=== PATIENT | female | born 1935 | race Caucasian/White ===

== ENCOUNTER 2017-05-22 09:00 | Inpatient (IN) | payer OTHER, MEDICARE ==
[~2017-05-22] VITALS: Ht 160 cm; Wt 110.0 kg
[2017-05-23] MEDS ORDERED: WARF-18 PO (11:55)
[2017-05-23] MEDS ORDERED: FURO40TA PO (11:55)
[2017-05-23] MEDS ORDERED: POTA-163 PO (11:55)
[2017-05-23] MEDS ORDERED: PRAV40TA PO (11:55)
[2017-05-23] MEDS ORDERED: ATEN25TA PO (11:55)
[2017-05-23] MEDS ORDERED: LEVO88TA2 PO (11:55)
[2017-05-23] MEDS ORDERED: SACC1CAP3 PO (12:33)
[2017-05-23] MEDS ORDERED: FISH1200 (12:33)
[2017-05-23] MEDS ORDERED: ONETAB22 PO (12:33)
[2017-05-24] VITALS (11 sets, daily range): BP systolic 105–136; BP diastolic 52–75; PULSE 61–84; RESP 16–18; TEMP 98–98.5; O2SAT 98–100
[2017-05-24] MEDS ORDERED: PROTAMINE SULFATE 50 MG/5 ML VIAL ONE ×2 (07:29→10:18)
[2017-05-24] MEDS ORDERED: HEPARIN SODIUM - IV 10,000 UNITS/10 ML VIAL ONE (07:29)
[2017-05-24] MEDS ORDERED: ceFAZolin 2 GM PREMIX 50 ML ONE (07:29)
[2017-05-24] MEDS ORDERED: HEPARIN-NS/PF INJ 500 ML ONE (07:29)
[2017-05-24] MEDS ORDERED: LACTATED RINGER'S 1000 ML IV PRN (07:30)
[2017-05-24] MEDS ORDERED: SODIUM CHLORID 0.9% 500 ML IV PRN (07:30)
[2017-05-24] MEDS ORDERED: CHLORHEXIDINE GLUCONATE 2 % 1 PACK (2 CLOTHS) TOPICAL PRN (07:30)
[2017-05-24] MEDS ORDERED: BUPIVACAINE HCL PF 0.5% 30 ML VIAL ONE (07:30)
[2017-05-24] MEDS ORDERED: POVIDONE IODINE 5% (ANTISEPSIS KIT) 4 APPLICATIONS EACH NARE PRN (07:30)
[2017-05-24] MEDS ORDERED: METOPROLOL TARTRATE 25 MG TAB PO PRN (07:30)
[2017-05-24 08:03] LABS: INTERNATIONAL NORMALIZED RATIO 1.7 RATIO; PROTHROMBIN TIME - PATIENT 18.7 SEC (9.8-11.6)
--- NOTE | 2017-05-24 08:06 | RADRPT ---
EXAM DATE/TIME: 05/24/2017 07:32 [place] COMPARISON: CHEST SINGLE AP, April 17, 2012, 18:54. INDICATIONS : Evaluate for pneumonia, pneumothorax, or communicable disease. Pre-op stent abdominal. MEDICAL HISTORY : Hypertension. Heart disease. SURGICAL HISTORY : Colon resection due to ruptured colon. Right renal stent. ENCOUNTER: Initial ACUITY: 1 day PAIN SCORE: 0/10 LOCATION: Bilateral chest FINDINGS: A single view of the chest demonstrates the lungs to be symmetrically aerated without evidence of mas s, infiltrate or effusion. Unchanged mild cardiomegaly. No pulmonary vascular engorgement. Osseous s tructures are intact. CONCLUSION: Cardiomegaly without pulmonary vascular engorgement. Clear lungs. Mustapha Vargas Jr., MD on May 24, 2017 at 7:52 Board Certified Radiologist. This report was verified electronically.
--- NOTE | 2017-05-24 08:44 | HHI.HP ---
History of Present Illness Chief Complaint: type III endoleak History of Present Illness 82 yo female with h/o fenestrated EVAR in 2015 at [facility]. 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 Presents for repair. No abdominal pain or chest pain. Past/Family/Social History Past Medical History HTN AAA A fib hypothyroid Past Surgical History 4 vessel fenestrated EVAR Social History nonsmoker Family History [place] Home Medications Reported Medications [place]-3 Fatty Acids (Fish Oil 1200 mg) 360 Mg-1,200 Mg Cap, 1 CAP BID 05/23/17 Saccharomyces Boulardii (Probiotic) 250 Mg Cap, 250 MG PO DAILY for Nutritional Supplement, CAP 0 Refills 05/23/17 Multiple Vitamins W/ Minerals (One Daily-Minerals) 1 Tab, 1 TAB PO DAILY for Nutritional Supplement, #100 TAB 0 Refills 05/23/17 Warfarin (Warfarin) 2.5 Mg Tab, 2.5 MG PO DAILY for Blood Clot Prevention, #30 TAB 0 Refills 05/23/17 Pravastatin (Pravachol) 40 Mg Tab, 40 MG PO DAILY for Cholesterol Management, # 30 TAB 0 Refills 05/23/17 Potassium Chloride ER (Potassium Chloride ER) 20 Meq Tab, 20 MEQ PO DAILY for Electrolyte Replacement, #30 TAB 0 Refills 05/23/17 Levothyroxine (Levothyroxine) 88 Mcg Tab, 88 MCG PO DAILY for Thyroid, #30 TAB 0 Refills 05/23/17 Furosemide (Furosemide) 40 Mg Tab, 40 MG PO DAILY, #30 TAB 0 Refills 05/23/17 Atenolol (Atenolol) 25 Mg Tab, 25 MG PO BID for Blood Pressure Management, #30 TAB 05/23/17 Discontinued Reported Medications Hydrocodone-Acetaminophen (Hydrocodone-Acetaminophen) 5-325 mg Tab, 1 TAB PO Q4H Y for PAIN, TAB 0 Refills 05/23/17 Coded Allergies: No Known Allergies (Unverified Allergy, Unknown, 05/24/17) Review of Systems Respiratory: DENIES: Apneas, Cough, Snoring, Wheezing, Hemoptysis, Sputum production, Shortness of breath Cardiovascular: DENIES: Chest pain, Palpitations, Syncope, Dyspnea on Exertion , PND, Lower Extremity Edema, Orthopnea, Claudication Genitourinary: COMPLAINS OF: Dysuria Physical Exam Vitals/I&O Date Time Temp Pulse Resp B/P (MAP) Pulse Ox O2 Delivery O2 Flow Rate FiO2 05/24/17 07:45 97.8 65 20 151/82 (105) 98 Neuro: alert oriented, no distress HEENT: NC/AT; anicteric sclera Neck: no JVD Heart: no murmurs Lungs: clear B Abdomen: loss of domain, nontender Vascular: groins without erythema Laboratory Tests Test 05/24/17 07:40 Prothrombin Time 18.7 Prothromb Time International Ratio 1.7 Last 48 hours Impressions Chest X-Ray 05/24/17 0713 Signed Impressions: Service Date/Time: , May 24, 2017 07:32 - CONCLUSION: Cardiomegaly without pulmonary vascular engorgement. Clear lungs. MD Tamar Holt Jr. VTE Risk Assessment Tamar VTE Risk Assessment: Mod/High Risk (score >= 2) Caprini Risk Assessment Model Point Value = 1 Point Value = 2 Point Value = 3 Point Value = 5 Age 41-60 Minor surgery BMI > 25 kg/m2 Swollen legs Varicose veins or History of unexplained or recurrent spontaneous Oral contraceptives or hormone replacement Sepsis (< 1 month) Serious lung disease, including pneumonia (< 1 month) Abnormal pulmonary function Acute myocardial infarction Congestive heart failure (< 1 month) History of inflammatory bowel disease Medical patient at bed rest Age 61-74 Arthroscopic surgery Major open surgery (> 45 min) Laparoscopic surgery (> 45 min) Malignancy Confined to bed (> 72 hours) Immobilizing plaster cast Central venous access Age >= 75 History of VTE Family history of VTE Factor V Leiden Prothrombin [id number] Lupus anticoagulant Anticardiolipin antibodies Elevated serum homocysteine Heparin-induced thrombocytopenia Other congenital or acquired thrombophilia Stroke (< 1 month) Elective arthroplasty Hip, pelvis, or leg fracture Acute spinal cord injury (< 1 month) Prophylaxis Regimen Total Risk Factor Score Risk Level Prophylaxis Regimen 0-1 Low Early ambulation 2 Moderate Order ONE of the following: *Sequential Compression Device (SCD) *Heparin 5000 units SQ BID 3-4 Higher Order ONE of the following medications: *Heparin 5000 units SQ TID *Enoxaparin/Lovenox 40 mg SQ daily (WT < 150 kg, CrCl > 30 mL/min) *Enoxaparin/Lovenox 30 mg SQ daily (WT < 150 kg, CrCl > 10-29 mL/min) *Enoxaparin/Lovenox 30 mg SQ BID (WT < 150 kg, CrCl > 30 mL/min) AND/OR *Sequential Compression Device (SCD) 5 or more Highest Order ONE of the following medications: *Heparin 5000 units SQ TID (Preferred with Epidurals) *Enoxaparin/Lovenox 40 mg SQ daily (WT < 150 kg, CrCl > 30 mL/min) *Enoxaparin/Lovenox 30 mg SQ daily (WT < 150 kg, CrCl > 10-29 mL/min) *Enoxaparin/Lovenox 30 mg SQ BID (WT < 150 kg, CrCl > 30 mL/min) AND *Sequential Compression Device (SCD) Assessment and Plan Plan to OR for EVAR revision risks and benefits discussed with patient and daughter Discharge Planning [facility] post-op likely home POD#1 Daughter (Debbie) [phone] Santos Mederos MD May 24, 2017 08:44
[2017-05-24 09:00] LABS: BACTERIA, URINE RARE /hpf; BLOOD, URINE SMALL (NEG); COMMENT (UR) CATH-CULTURE IND; CULTURE IF INDICATED CATH CULTURE IND; GLUCOSE,URINE NEG (NEG); HYALINE CAST, URINE 10 /lpf (RARE); KETONE, URINE NEG (NEG); MUCUS URINE FEW /lpf (OCC); NITRITE,URINE NEG (NEG); PH, URINE 5.5 (5.0-8.5); SQUAMOUS EPITHELIAL CELL URINE 1 /hpf (0-5); URINE COLOR YELLOW (YELLW/STRAW)
[2017-05-24] MEDS ORDERED: MAGNESIUM HYDROXIDE SUSP 30 ML CUP PO PRN (09:00)
[2017-05-24] MEDS ORDERED: BISACODYL 10 MG SUPP RECTAL PRN (09:00)
[2017-05-24] MEDS ORDERED: LACTULOSE SYRUP 20 GM/30 ML CUP PO PRN (09:00)
[2017-05-24] MEDS ORDERED: NON-FORMULARY DRUG (Omega-3 Fatty Acids (Fish Oil 1200 mg) 1 CAP) SCH (09:00)
[2017-05-24] MEDS ORDERED: HYDROmorphone HCL 2 MG TAB PO PRN (09:00)
[2017-05-24] MEDS ORDERED: NON-FORMULARY DRUG (Saccharomyces Boulardii (Probiotic) 250 MG) PO SCH (09:00)
[2017-05-24] MEDS ORDERED: SENNOSIDES 8.6 MG TAB PO PRN (09:00)
[2017-05-24] MEDS ORDERED: LEVOTHYROXINE SODIUM 88 MCG TAB PO SCH (09:30)
[2017-05-24] MEDS ORDERED: MORPHINE SULFATE 2 MG/ML INJ IV PUSH PRN (09:30)
--- NOTE | 2017-05-24 10:46 | HHI.PR ---
Immediate Post Op Note Procedure Date: May 24, 2017 Pre Op Diagnosis: Type III endoleak after fenestrated EVAR Post Op Diagnosis: same Surgeon: Santos Mederos Paralegals(s): none Procedure: 1. EVAR revision (interposition aortic graft) 2. IVUS of aorta 3. U/S guided access 4. L GENERAL HANDLING SUPERVISOR Angioseal 5. R GENERAL HANDLING SUPERVISOR Perclose Findings: resolution of type III endoleak Complications: none; Specimen(s) removed: none Estimated blood loss: 50mL Anesthesia: General Drains: None Fluids: 1300mL IVF Urinary Output (mLs): 60 Patient to: PACU Patient Condition: Good Implant/Devices: SEE IMPLANT LOG (if applicable) Date/Time of Procedure: SEE SURGICAL CARE RECORD Santos Mederos MD May 24, 2017 10:46
[2017-05-24] MEDS ORDERED: DO NOT ADM ANY ANTICOAGULANT DRUGS PRN (10:56)
[2017-05-24] MEDS ORDERED: *morphine SULFATE 8 MG/ML PERIprocedure ONLY ONE (11:05)
[2017-05-24] MEDS: D5-1/2 NS + KCL 20 MEQ INJ 1,000 ML IV SCH (11:15)
[2017-05-24] MEDS ORDERED: LIDOCAINE HCL 1% PF 5 ML SYRINGE OTHER ONE (12:00)
[2017-05-24] MEDS ORDERED: ROCURONIUM INJ 50 MG/5 ML SYRINGE IV PUSH ONE (12:00)
[2017-05-24] MEDS ORDERED: PROPOFOL 200 MG/20 ML AMP IV ONE (12:00)
[2017-05-24] MEDS ORDERED: LABETALOL HCL 100 MG/20 ML VIAL IV ONE (12:00)
[2017-05-24] MEDS ORDERED: ePHEDrine/NS 25 MG/5 ML SYR IV ONE (12:00)
[2017-05-24] MEDS ORDERED: ONDANSETRON HCL 4 MG/2 ML VIAL IV PUSH ONE (12:00)
[2017-05-24] MEDS ORDERED: NEOSTIGMINE 3 MG/3 ML SYR IV ONE (12:00)
[2017-05-24] MEDS ORDERED: GLYCOPYRROLATE 1 MG/5 ML SYRINGE IV PUSH ONE (12:00)
[2017-05-24] MEDS ORDERED: BENZOCAINE 6 MG/MENTHOL 10 MG LOZENGE BUCCAL PRN (20:15)
[2017-05-24] MEDS: DOCUSATE SODIUM 50 MG/SENNA 8.6 MG TAB PO SCH (22:00)
[2017-05-24] MEDS: ATENOLOL 25 MG TAB PO SCH (22:01)
[2017-05-25] VITALS (32 sets, daily range): BP systolic 102–126; BP diastolic 53–60; PULSE 74–94; RESP 16–20; TEMP 98.5–99.3; O2SAT 91–96
[2017-05-25] MEDS: ATENOLOL 25 MG TAB PO SCH ×4 (03:27→20:24)
[2017-05-25 05:09] LABS: MEAN CELL VOLUME 95.4 FL (80.0-100.0); MEAN CORPUSCULAR HEMOGLOBIN 32.4 PG (27.0-34.0); MEAN CORPUSCULAR HGB CONC 33.9 % (32.0-36.0); PLATELET COUNT 125 TH/MM3 (150-450); RED BLOOD COUNT 3.98 MIL/MM3 (4.00-5.30); RED CELL DISTRIBUTION WIDTH 14.9 % (11.6-17.2); REVIEW FLAG FINAL; WHITE BLOOD COUNT 9.9 TH/MM3 (4.0-11.0)
[2017-05-25 05:17] LABS: BICARBONATE 30.3 MEQ/L (21.0-32.0); POTASSIUM 4.6 MEQ/L (3.5-5.1)
--- NOTE | 2017-05-25 05:55 | MP ---
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 PROCEDURE Endovascular aortic exclusion of abdominal aorta using the aorta-aortic endoprosthesis. ATTENDING SURGEON Santos Mederos MD. SPIRAL [employer]ING W[employer]ER None. ANESTHESIA General. INDICATIONS Ms. Castrejon is an 82-year-old lady who had a fenestrated endovascular repair. She has a Type III endoleak and expanding aneurysm is taken to the operating room for endovascular mediation. DESCRIPTION Informed consent was obtained from the patient. She was taken to the operating room and placed supine on the operating room table. An appropriate time-out was taken to ensure the patient's identity, the operative site and planned procedure. The administration of 2 grams of Ancef was initiated prior to the skin incision and will be discontinued after a single preoperative dose. Everyone in the room agreed with the time-out abd we proceeded. She was prepped from her nipples to her knees. Under ultrasonic guidance, a 21-gauge micropuncture needle was used to access the right common femoral artery. This was exchanged using Seldinger technique for a micropuncture sheath through which a 0.05 Storq wire was introduced. The micropuncture sheath was exchanged for a 5-[place] sheath. Two Perclose ProGlide sutures were inserted and tagged. They were not tied down as these will be used later. An 8-Citizen [place], 25 cm was introduced. Micropuncture access was obtained in the left common femoral artery, exchanged using Seldinger technique for a micropuncture sheath through which a 0.05 Storq wire was introduced. The micropuncture sheath was exchanged for a 5-[place]izen [place] sheath. The patient was systemically heparinized and throughout the remainder of the case the ACT was kept greater than 250. The Storq wire was advanced using the aid of Berenstein catheters up to the thoracic aorta and the right hand Storq wire was exchanged for a Lunderquist wire. The intravascular ultrasound catheter was then advanced and the IVUS catheter showed that the wire was indeed through the entire stents and not through the interstices of the stents. The IVUS catheter was removed and a 12-mm balloon was used to inflate in the middle of the aorta and then gently withdrawn caudally to again show that we were indeed in the lumen of the vessels. The balloon was removed. The 8-Citizen [place] sheath was removed. A pigtail catheter was placed up through the left hand side. After the 8-[place]izen [place] sheath was removed from the right side, [place] dilators were used to dilate the skin, subcutaneous tract and arteriotomy and a 32 x 53 cuff was then placed immediately caudal to the right renal artery stent which was the lower stent and it was deployed without difficulty. A second stent was then deployed down to the aortic bifurcation. Both of these were ballooned with a Coda balloon and at the completion angiogram showed excellent without any recoil or extravasation and complete resolution of the endoleak. The wire, catheter and sheath were removed. The Perclose were tied down on the right-hand side, hemostasis achieved in the groin and there was a nice Doppler signal in the foot. The left groin was closed with AngioSeal. There no complications. I was present and scrubbed and performed the entire procedure. MD ELY Cooper/SSB /3:12 PM /5:34 AM
[2017-05-25] MEDS: LEVOTHYROXINE SODIUM 88 MCG TAB PO SCH (06:23)
[2017-05-25] MEDS ORDERED: ONDANSETRON HCL 4 MG/5 ML UDC PO PRN (07:00)
--- NOTE | 2017-05-25 09:23 | PD.VS.PN ---
Subjective POD #: 1 Procedure(s): EVAR revision Subjective/Hospital Course felt great last night but nauseated this morning. Says that happens occasionally with morphine no abdominal tenderness no chest pain no diaphoresis Objective Vitals/I&O Date Time Temp Pulse Resp B/P (MAP) Pulse Ox O2 Delivery O2 Flow Rate FiO2 05/25/17 09:15 98.9 94 18 126/60 (82) 95 05/25/17 06:00 75 05/25/17 05:00 82 05/25/17 04:00 85 05/25/17 03:37 99.3 86 16 117/58 (77) 96 05/25/17 03:00 82 05/25/17 02:00 86 05/25/17 01:00 82 05/25/17 00:00 86 05/24/17 23:24 98.5 76 16 136/63 (87) 98 05/24/17 23:00 84 05/24/17 22:00 74 05/24/17 21:00 74 05/24/17 20:30 98.5 70 16 120/75 (90) 99 05/24/17 20:00 66 05/24/17 19:00 64 05/24/17 18:01 65 05/24/17 17:13 76 05/24/17 16:15 67 05/24/17 15:20 98.0 61 18 105/52 (69) 100 Arterial Line 05/24/17 15:20 68 05/24/17 13:05 97.7 61 17 105/55 (72) 98 Nasal Cannula 2 05/24/17 12:45 60 17 107/57 (74) 97 Nasal Cannula 2 05/24/17 12:15 59 17 104/52 (69) 100 Nasal Cannula 2 05/24/17 12:00 58 17 104/52 (69) 100 Nasal Cannula 2 05/24/17 11:45 63 17 99/54 (69) 100 Nasal Cannula 2 114/58 (76) 05/24/17 11:30 63 15 98/51 (67) 99 Nasal Cannula 3 118/57 (77) 05/24/17 11:15 66 14 93/49 (64) 99 Nasal Cannula 3 110/51 (70) 05/24/17 11:00 70 15 107/51 (69) 98 Nasal Cannula 3 132/61 (84) 05/24/17 10:56 97.6 86 15 112/55 (74) 97 Nasal Cannula 3 120/58 (78) 05/25/17 05/25/17 05/25/17 07:00 15:00 23:00 Intake Total 660 ml Output Total 550 ml Balance 110 ml Exam: groins soft feel warm Laboratory Laboratory Tests Test 05/25/17 04:25 White Blood Count 9.9 Red Blood Count 3.98 Hemoglobin 12.9 Hematocrit 38.0 Mean Corpuscular Volume 95.4 Mean Corpuscular Hemoglobin 32.4 Mean Corpuscular Hemoglobin Concent 33.9 Red Cell Distribution Width 14.9 Platelet Count 125 Mean Platelet Volume 8.5 Blood Urea Nitrogen 20 Creatinine 1.10 Random Glucose 135 Calcium Level 8.0 Sodium Level 139 Potassium Level 4.6 Chloride Level 104 Carbon Dioxide Level 30.3 Anion Gap 5 Estimat Glomerular Filtration Rate 48 Date/Time Source Procedure Growth Status 05/24/17 08:30 Urine Catheterized Urine Urine Culture Pending Received Assessment and Plan Plan POD#1 s/p EVAR revision Can be d/c'ed later today if nausea subsides Discharge Planning later today Daughter (Debbie) [phone] Santos Mederos MD May 25, 2017 09:23
[2017-05-25] MEDS: D5-1/2 NS + KCL 20 MEQ INJ 1,000 ML IV SCH (09:26)
[2017-05-25] MEDS: FUROSEMIDE 40 MG TAB PO SCH ×2 (09:26→09:32)
[2017-05-25] MEDS: PRAVASTATIN SOD 40 MG TAB PO SCH ×2 (09:27→09:32)
[2017-05-25] MEDS: ENOXAPARIN SODIUM 30 MG/0.3 ML SYRINGE SQ SCH (09:27)
[2017-05-25] MEDS: POTASSIUM CHLORIDE 20 MEQ CONTROLLED RELEASE TAB PO SCH ×3 (12:21→12:24)
[2017-05-25] MEDS: MULTIVITAMINS/MINERALS THERAPEUTIC TAB PO SCH ×3 (12:21→12:24)
[2017-05-25] MEDS: DOCUSATE SODIUM 50 MG/SENNA 8.6 MG TAB PO SCH ×3 (12:22→20:24)
[2017-05-25] MEDS: ACETAMINOPHEN 325 MG TAB PO PRN ×2 (16:49→20:26)
[2017-05-26] VITALS (12 sets, daily range): BP systolic 114–120; BP diastolic 54–75; PULSE 73–90; RESP 16–18; TEMP 98.3–98.9; O2SAT 94–95
[2017-05-26] MEDS: ACETAMINOPHEN 325 MG TAB PO PRN ×2 (03:32→08:58)
[2017-05-26] MEDS: LEVOTHYROXINE SODIUM 88 MCG TAB PO SCH (06:00)
[2017-05-26] MEDS: ATENOLOL 25 MG TAB PO SCH (08:55)
[2017-05-26] MEDS: FUROSEMIDE 40 MG TAB PO SCH (08:55)
[2017-05-26] MEDS: PRAVASTATIN SOD 40 MG TAB PO SCH (08:55)
[2017-05-26] MEDS: POTASSIUM CHLORIDE 20 MEQ CONTROLLED RELEASE TAB PO SCH (08:55)
[2017-05-26] MEDS: MULTIVITAMINS/MINERALS THERAPEUTIC TAB PO SCH (08:55)
[2017-05-26] MEDS: DOCUSATE SODIUM 50 MG/SENNA 8.6 MG TAB PO SCH (08:55)
[2017-05-26] MEDS: D5-1/2 NS + KCL 20 MEQ INJ 1,000 ML IV SCH (08:56)
[2017-05-26] MEDS: ENOXAPARIN SODIUM 30 MG/0.3 ML SYRINGE SQ SCH (09:00)
--- NOTE | 2017-05-26 10:25 | PD.VS.PN ---
Subjective POD #: 2 Procedure(s): EVAR revision Subjective/Hospital Course Nausea gone c/o dysuria and UA + no abdominal pain Objective Vitals/I&O Date Time Temp Pulse Resp B/P (MAP) Pulse Ox O2 Delivery O2 Flow Rate FiO2 05/26/17 10:05 90 05/26/17 09:07 82 05/26/17 08:13 87 05/26/17 07:00 98.3 85 18 120/54 (76) 95 05/26/17 07:00 85 05/26/17 07:00 Room Air 05/26/17 06:00 83 05/26/17 05:00 87 05/26/17 04:00 78 05/26/17 03:51 98.9 73 16 114/75 (88) 94 05/26/17 03:00 76 05/26/17 02:00 78 05/26/17 01:00 76 05/26/17 00:00 76 05/25/17 23:29 99.0 76 16 106/53 (70) 92 05/25/17 23:00 82 05/25/17 22:00 74 05/25/17 21:00 86 05/25/17 20:42 94 Nasal Cannula 1.00 05/25/17 20:41 99.0 76 16 106/58 (74) 96 05/25/17 20:00 76 05/25/17 19:00 80 05/25/17 18:00 80 05/25/17 17:00 80 05/25/17 16:31 83 05/25/17 16:00 93 Room Air 05/25/17 15:47 98.5 83 18 106/57 (73) 95 05/25/17 15:00 78 05/25/17 14:30 75 05/25/17 13:31 75 05/25/17 12:33 83 20 93 05/25/17 12:00 81 05/25/17 11:31 94 Nasal Cannula 1.00 05/25/17 11:27 99.2 78 18 102/58 (73) 94 05/25/17 11:25 81 05/26/17 05/26/17 05/26/17 07:00 15:00 23:00 Intake Total 480 ml Output Total 860 ml Balance -380 ml Exam: resting comfortably, no distress no abdominal tenderness groins ok Laboratory Date/Time Source Procedure Growth Status 05/24/17 08:30 Urine Catheterized Urine Urine Culture - Preliminary Gram Negative Zac Resulted Assessment and Plan Plan POD#2 s/p EVAR revision d/c today with 7d cipro for Gram negative UTI Discharge Planning today Daughter (Debbie) [phone] Santos Mederos MD May 26, 2017 10:25
--- NOTE | 2017-05-26 10:26 | PD.VS.DC ---
Discharge Summary Admission Date: May 24, 2017 at 06:48 Discharge Date: May 26, 2017 Admission Diagnosis: (1) Endoleak of aortic graft Discharge Diagnosis: (1) Endoleak of aortic graft ICD Codes: T82.330A - Leakage of aortic (bifurcation) graft (replacement), initial encounter Brief History from admission 82 yo female with h/o fenestrated EVAR in 2015 at [facility]. 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 Presents for repair. No abdominal pain or chest pain. Procedure(s): EVAR revision Significant Findings Laboratory Tests Test 05/24/17 07:40 05/24/17 08:30 05/25/17 04:25 Prothrombin Time 18.7 SEC (9.8-11.6) Urine Turbidity CLOUDY (CLEAR) Urine Protein 30 mg/dL (NEG-TRACE) Urine Occult Blood SMALL (NEG) Urine Leukocyte Esterase LARGE (NEG) Urine RBC 21 /hpf (0-3) Urine WBC Clumps MANY (NONE) Urine Bacteria RARE /hpf (NONE) Urine Mucus FEW /lpf (OCC) Red Blood Count 3.98 MIL/MM3 (4.00-5.30) Platelet Count 125 TH/MM3 (150-450) Blood Urea Nitrogen 20 MG/DL (7-18) Creatinine 1.10 MG/DL (0.50-1.00) Random Glucose 135 MG/DL (74-106) Calcium Level 8.0 MG/DL (8.5-10.1) Estimat Glomerular Filtration Rate 48 ML/MIN (>89) Hospital Course: The patient underwent endovascular revision for a type III endoleak and tolerated it well. POD#1 she c/o nausea that resolved by POD#2. Ready for d/c. Discharge Condition: Good Discharge Disposition: Discharge Home Any questions or concerns: Call [facility] at [facility] [phone] Santos Mederos MD May 26, 2017 10:26
== END 2017-05-26 11:02 | disposition home or self-care (01) | DRG 220 ==
LOC: HSDI 05-24 06:48 → HCPC 05-24 13:17
PROVIDERS: ADMIT Surgery; ATTEND Surgery
PROC: 04V03D6 (ICD-10-PCS; 2017-05-24)
PROC: 02VW3DZ Restriction of Thoracic Aorta, Descending with Intraluminal Device, Percutaneous Approach (ICD-10-PCS; principal; 2017-05-24 08:52)
DX: T82.330A Leakage of aortic (bifurcation) graft (replacement), initial encounter (principal); N39.0 Urinary tract infection, site not specified; I71.6 Thoracoabdominal aortic aneurysm, without rupture; I11.9 Hypertensive heart disease without heart failure; E03.9 Hypothyroidism, unspecified; I48.91 Unspecified atrial fibrillation; B96.89 Other specified bacterial agents as the cause of diseases classified elsewhere; R11.0 Nausea; Y83.2 Surgical operation with anastomosis, bypass or graft as the cause of abnormal reaction of the patient, or of later complication, without mention of misadventure at the time of the procedure; Z79.01 Long term (current) use of anticoagulants
CPT/HCPCS: 71010; 80048; 81001; 85027; 85610; 86850; 86900; 86901; 87077; 87086; 87186; C1725; C1753; C1769; C1874; J0690; J1644; J1650; J2270; J2405; J2710; J2720; J3010; J3480; J7120